=== PATIENT | male | born 1995 | race Caucasian/White ===

== ENCOUNTER 2016-10-26 01:29 | Emergency (ER) | payer SELFPAY ==
[~2016-10-26] VITALS: Ht 190.5 cm; Wt 83.9 kg
[2016-10-26 01:35] VITALS: BP 153/80
[2016-10-26] MEDS ORDERED: TDAP [DIPH/PERTUSSIS/TET] 0.5 ML VIAL IM ONE ×2 (02:15→02:30)
== END 2016-10-26 02:52 | disposition home or self-care (01) ==
LOC: ER 01:31 → EDBD 01:31 → ER 02:52
DX: S61.432A Puncture wound without foreign body of left hand, initial encounter (principal); X58.XXXA Exposure to other specified factors, initial encounter; Y93.89 Activity, other specified; Y99.8 Other external cause status; Y92.89 Other specified places as the place of occurrence of the external cause
CPT/HCPCS: 90471; 90715; 99283; A4606; A6402; Z7610; J3490